=== PATIENT | male | born 1995 | race Two or more races ===

== ENCOUNTER 2017-05-29 17:17 | Emergency (ER) | payer SELFPAY ==
[~2017-05-29] VITALS: Ht 170.2 cm; Wt 86.2 kg
[2017-05-29] MEDS ORDERED: Proparacaine 0.5% Opth Soln 15ml RIGHT EYE ONE (17:45)
[2017-05-29] MEDS ORDERED: Bacitracin Oint UD TOPIC ONE (17:45)
[2017-05-29] MEDS ORDERED: Fluorescein Strips RIGHT EYE ONE (17:45)
[2017-05-29] MEDS ORDERED: Norco 5mg/325mg tab ORAL ONE (18:00)
[2017-05-29] MEDS ORDERED: TRAMADOL HCL50 MG ORAL (18:03)
[2017-05-29] MEDS ORDERED: OCUFLOX5 ML OP (18:03)
[2017-05-29 18:50] VITALS: BP 121/74
--- NOTE | 2017-05-29 20:23 | Emergency Room Report ---
History of Present Illness General Chief Complaint: Laceration Source: Patient Present Illness HPI the patient is a 21-year-old male presenting for right eye injury. He states that he ran into a metal gate just prior to arrival. Pain is a 7/10 dull ache and does not radiate from the eye. Pain is worse with light exposure and touch. He denies any prior injury to the eye. He does not wear corrective lenses. He denies any other symptoms or injury Allergies: Coded Allergies: No Known Allergies (Unverified , 05/29/17) Patient History Past Medical History: see triage record Pertinent Family History: none Reviewed Nursing Documentation: PMH: Agreed, PSxH: Agreed Nursing Documentation-PMH Past Medical History: No Stated History Review of Systems All Other Systems: negative except mentioned in HPI Physical Exam Vital Signs Date Time Temp Pulse Resp B/P (MAP) Pulse Ox O2 Delivery O2 Flow Rate FiO2 05/29/17 17:20 98.1 88 19 125/77 98 Room Air Sp02 EP Interpretation: reviewed, normal General Appearance: no apparent distress, alert, GCS 15, non-toxic Head: normocephalic, atraumatic Eyes: right eye EOMI - inferior to cornea, right eye lid inflammation, right eye photophobia, right eye Scleral Injection, bilateral eye PERRL ENT: hearing grossly normal, normal pharynx, no angioedema, normal voice Neck: full range of motion, supple/symm/no masses Respiratory: chest non-tender, lungs clear, normal breath sounds, speaking full sentences Musculoskeletal: back normal, gait/station normal, normal range of motion, non- tender Neurologic: alert, oriented x3, responsive, motor strength/tone normal, sensory intact, speech normal Psychiatric: judgement/insight normal, memory normal, mood/affect normal, no suicidal/homicidal ideation Skin: laceration - <1cm inferior to R eye Lymphatic: no adenopathy Medical Decision Making PA Attestation Dr. Story is my supervising physician. Patient management was discussed with my supervising physician Diagnostic Impression: Primary Impression: Abrasion of conjunctiva, right Qualified Codes: S05.01XA - Injury of conjunctiva and corneal abrasion without foreign body, right eye, initial encounter ER Course The patient is a 21-year-old male presenting for right eye injury. Differential diagnoses considered but not limited to corneal abrasion, contusion , fracture, laceration, among others PE: NAD Visual acuity 20/20 bilaterally PERRL. EOMI Right eye has injection. Edema to both upper and lower eyelid Less than 1 cm laceration inferior to right eyelid The wound was cleaned with normal saline and Betadine. Bacitracin applied with dressing Proparacaine was applied to the affected eye and then fluorescene strip was applied to bottom internal eyelid. UV light was used to assess for increased uptake. Uptake seen inferior to cornea. Last tetanus shot within 10 years The patient will be discharged home and will follow up with primary doctor. He is given prescription for Ocuflox. ER precautions are given Last Vital Signs Date Time Temp Pulse Resp B/P (MAP) Pulse Ox O2 Delivery O2 Flow Rate FiO2 05/29/17 18:50 98.7 70 15 121/74 98 Room Air Status: improved Disposition: HOME, SELF-CARE Condition: Improved Scripts Ofloxacin (OCUFLOX) 5 Ml Drops 1 ML OP Q4HR, #5 ML Prov: KAIA RUTH 05/29/17 Tramadol Hcl* (ULTRAM*) 50 Mg Tablet 50 MG ORAL Q6H Y for For Pain, #8 TAB 0 Refills Prov: KAIA RUTH 05/29/17 Patient Instructions: Photophobia Additional Instructions: I discussed my findings with the patient. All questions and concerns have been answered. Treatment and medication compliance have been addressed. I advised the patient that they need to follow up with PMD in 3-5 days. Return to ED if symptoms worsen, new symptoms arise, or if needed for any reason. Patient verbalized understanding of discharge instructions. KAIA RUTH May 29, 2017 20:23
== END 2017-05-29 18:54 | disposition home or self-care (01) ==
LOC: EMR 17:52
DX: S05.01XA Injury of conjunctiva and corneal abrasion without foreign body, right eye, initial encounter (principal); W22.8XXA Striking against or struck by other objects, initial encounter; Y92.89 Other specified places as the place of occurrence of the external cause
CPT/HCPCS: 99284